=== PATIENT | male | born 1930 | race Caucasian/White ===

== ENCOUNTER 2016-11-10 06:34 | Day surgery (SDCO) | payer MEDICARE ==
[2016-11-10 06:16] LABS: BASOPHIL 0.8 % (0-2); EOSINOPHIL 1.2 % (0-7); HCT 40.4 % (42.0-52.0); HGB 14.4 g/dl (13.2-18.0); LYMPHOCYTE 18.5 % (15-48); MCH 35.5 pg (25.0-31.0); MCHC 35.6 g/dL (32.0-36.0); MCV 99.5 fL (78.0-100.0); MPV 9.9 fL (6.0-9.5); NEUTROPHIL 63.5 % (41-80); PLT 103 K/uL (150-400); RBC 4.06 M/uL (4.70-6.00); RDW 13.1 % (11.5-14.0); WBC 5.9 K/uL (4.0-10.5)
[2016-11-10 06:32] LABS: INR 1.8 (0.9-1.2); PROTHROMBIN TIME 20.3 SECONDS (11.7-14.0); PTT 30.9 SECONDS (23.2-31.4)
[2016-11-10 06:39] LABS: LACTIC ACID 1.1 mmol/L (0.5-2.2)
[2016-11-10 06:42] LABS: ALBUMIN 4.4 g/dL (3.4-4.8); BILIRUBIN - TOTAL 0.5 mg/dL (0.1-1.0); CREATININE 1.2 mg/dL (0.7-1.2); GLOBULIN (CALCULATION) 2.8 g/dL (2.2-4.2); POTASSIUM 4.3 mmol/L (3.5-5.1); TOTAL PROTEIN 7.2 g/dL (6.4-8.3)
[2016-11-10 06:45] LABS: CKMB 2.53 ng/mL (0.97-4.94); MYOGLOBIN 31 ng/mL (26-65); TROPONIN T < 0.010 ng/mL
[2016-11-10 08:10] LABS: BILIRUBIN NEGATIVE (NEGATIVE); BLOOD NEGATIVE Ery/uL (NEGATIVE); CLARITY CLEAR (CLEAR); COLOR YELLOW (YELLOW); GLUCOSE (U) NORMAL (NORMAL); KETONE (U) NEGATIVE (NEGATIVE); LEUKOCYTES NEGATIVE Leu/uL (NEGATIVE); NITRITE NEGATIVE (NEGATIVE); PROTEIN NEGATIVE (NEGATIVE); SPECIFIC GRAVITY 1.015 (1.001-1.030); UROBILINOGEN 0.2 mg/dL (0.2-1.0)
[2016-11-10 17:43] LABS: FT4 (FREE T4) 1.1 ng/dL (0.93-1.70); TSH (THYROID STIM HORMONE) 3.35 uIU/mL (0.270-4.200)
[2016-11-11] MEDS ORDERED: COUMADIN5 MG PO (12:33)
[2016-11-11] MEDS ORDERED: LASIX20 MG PO (12:33)
[2016-11-11] MEDS ORDERED: ISOSORBIDE MONO60 MG PO (12:33)
[2016-11-11] MEDS ORDERED: LIPITOR 10MG TA10 MG PO (12:33)
[2016-11-11] MEDS ORDERED: COREG CR40 MG PO (12:33)
[2016-11-11] MEDS ORDERED: NORVASC5 MG PO (12:33)
[2016-11-11] MEDS ORDERED: COZAAR 25MG TAB25 MG PO (12:34)
[2016-11-11] MEDS ORDERED: REMERON30 MG PO (12:34)
[2016-11-11] MEDS ORDERED: RANEXA500 MG PO (12:34)
== END 2016-11-11 13:19 | disposition home or self-care (01) ==
LOC: FER 06:34 → FMS 08:50
PROVIDERS: Emergency Medicine; ADMIT Internal Medicine
DX: R53.1 Weakness (principal); I25.10 Atherosclerotic heart disease of native coronary artery without angina pectoris; I48.91 Unspecified atrial fibrillation; I11.0 Hypertensive heart disease with heart failure; I50.22 Chronic systolic (congestive) heart failure; E78.5 Hyperlipidemia, unspecified; K21.9 Gastro-esophageal reflux disease without esophagitis; M19.90 Unspecified osteoarthritis, unspecified site; Z95.810 Presence of automatic (implantable) cardiac defibrillator; Z95.1 Presence of aortocoronary bypass graft; Z85.828 Personal history of other malignant neoplasm of skin; Z82.49 Family history of ischemic heart disease and other diseases of the circulatory system; Z83.3 Family history of diabetes mellitus; Z79.01 Long term (current) use of anticoagulants; Z79.899 Other long term (current) drug therapy
CPT/HCPCS: 36415; 70450; 71010; 71250; 80053; 80061; 81003; 82550; 82553; 83605; 83874; 83880; 84439; 84443; 84484; 85025; 85610; 85730; 87804; 87899; 93005; 97110; 97116; 97161; 97165; 97530; 97530-GP; 97535; G0378; J1940